=== PATIENT | male | born 1960 | race Caucasian/White ===

== ENCOUNTER 2018-11-15 06:04 | Day surgery (SDC) | payer OTHER ==
[2018-11-09 14:49] VITALS: BMI 28.1
[2018-11-15] MEDS ORDERED: MIDAZOLAM HCL 2 MG/2 ML SINGLE DOSE VIAL ONE (07:47)
[2018-11-15] MEDS ORDERED: PROPOFOL 20 ML ONE (07:47)
[2018-11-15] MEDS ORDERED: ROCURONIUM BROMIDE 50 MG/5 ML VIAL ONE (07:47)
[2018-11-15] MEDS ORDERED: SUCCINYLCHOLINE CHLORIDE 200 MG/10 ML VIAL ONE (07:47)
[2018-11-15] MEDS ORDERED: ATROPINE SULFATE 1 MG/10 ML DISP.SYRIN ONE (08:12)
[2018-11-15] MEDS ORDERED: ONDANSETRON 4 MG/2 ML VIAL ONE (08:13)
[2018-11-15] MEDS ORDERED: ceFAZolin SODIUM 1 GM VIAL ONE (08:13)
[2018-11-15] MEDS ORDERED: DEXAMETHASONE SOD PHOSPHATE 4 MG/1 ML VIAL ONE (08:13)
[2018-11-15] MEDS ORDERED: NEOSTIGMINE METHYLSULFATE 0.5 MG/ML - 10 ML MDV ONE (08:43)
[2018-11-15] MEDS ORDERED: GLYCOPYRROLATE 0.2 MG/1 ML VIAL ONE (08:44)
--- NOTE | 2018-11-15 08:54 | HP ---
[facility] - Chief Complaint Chief Complaint: Umbilical hernia History Source: Patient Limitations to Obtaining History: No Limitations - Past Medical History Allergies/Adverse Reactions: Allergies Allergy/AdvReac Type Severity Reaction Status Date / Time No Known Drug Allergies Allergy Verified 10/09/14 10:37 HAY FEVER Allergy Uncoded 10/09/14 10:37 Cardiovascular: Yes: Hyperlipdemia Gastrointestinal: Yes: Hemorrhoids, Hiatal Hernia Additional Medical History: Left olecranon bursitis - Current Medications Current Medications: Home Medications Medication Instructions Recorded Cholecalciferol (Vitamin D3) 2,000 unit PO DAILY 06/26/14 [Vitamin D] Multivitamin [One Daily 1 each PO DAILY tablet 09/27/14 Multivitamin] Satellite Physical Exam - Physical Examination Vital Signs: Vital Signs Period Temp Pulse Resp BP Sys/Tovar Pulse Ox Last 24 Hr 97.6 F 45 18 131/72 95 General Appearance: Well Nourished Lung: Clear to auscultation Heart: Regular rate & rhythm Abdomen: Soft, Other (+ umbilical hernia) Neurological: Alert, Oriented Satellite Impression/Plan - Impression/Plan Impression: + Umbilical hernia Operative Procedure: Laparoscopic possible open umbilical hernia repair with possible mesh Date to be Performed: 11/15/18
--- NOTE | 2018-11-15 08:57 | OP ---
Operative Note - Note: Operative Date: 11/15/18 Pre-Operative Diagnosis: Umbilical hernia Operation: Laaproscopic umbilical hernia repair Post-Operative Diagnosis: Same as Pre-op Surgeon: Eliazar Gutierrez Anesthesia: General Specimens Removed: None Estimated Blood Loss (mls): 5 Operative Report Dictated: Yes
[2018-11-15] MEDS ORDERED: ONDANSETRON 4 MG/2 ML VIAL IVPUSH PRN (09:02)
[2018-11-15] MEDS ORDERED: oxyCODONE HCL 5 MG TABLET PO PRN (09:02)
[2018-11-15] MEDS ORDERED: LACTATED RINGERS SOLUTION 1,000 ML IV SCH (09:15)
[2018-11-15] MEDS ORDERED: oxyCODONE HCL 5 MG TABLET ONE (09:53)
[2018-11-15 10:06] VITALS: TEMP 97.3
--- NOTE | 2018-11-15 10:26 | OP ---
DATE OF OPERATION: 11/15/2018 SURGEON: Elke Gutierrez MD CLAIM SERVICE REPRESENTATIVE: Aminata Young MD PREOPERATIVE DIAGNOSIS: Umbilical hernia. POSTOPERATIVE DIAGNOSIS: Umbilical hernia. PROCEDURE: Laparoscopic umbilical hernia repair. SPECIMEN: None. BLOOD LOSS: 5 mL. DRAINS: None. ANESTHESIA: GET. REASON FOR PROCEDURE: This is a 58-year-old gentleman who presents to the office for evaluation of possible umbilical hernia. On exam and ultrasound findings, he was found to have an umbilical hernia approximately 2 cm x 2 cm in size. Because of this, he was consented for laparoscopic possible open umbilical hernia repair with possible mess. The risks and benefits of the procedure were explained, these included bleeding, infection, recurrence of hernia, injury to surrounding structure including intraabdominal contents including bowel, stomach, colon, spleen, liver, other intraabdominal organs, nerve injury, vessel injury, MO, DVT, and PE as some of the complications. He understood and signed for consent. DESCRIPTION OF PROCEDURE: Patient was placed supine on the operative table. He underwent general endotracheal intubation. The abdomen was prepped and draped in sterile fashion. Timeout was performed. A 5-mm incision was made in the left subcostal region. A 5-mm Optiview trocar was placed under direct visualization with the laparoscope. Pneumoperitoneum was insufflated. The abdomen was inspected, and the small 2 cm x 2 cm umbilical hernia was noted. No bowel content was noted. An incision was made at the center of the umbilicus which is at the center of the hernia. Using the Betito-Jennifer device and 2-0 Vicryl suture, the fascia was closed in [id number] fashion. The hernia was noted to be completely secured with the sutures. No further hernias were noted. Pneumoperitoneum was desufflated, and trocar was removed. Biosyn 4-0 was used to close the 2 skin incisions. Sterile dressings were applied. The patient tolerated the procedure well and transferred to the recovery room in stable condition. ELKE GUTIERREZ M.D. MICHELE/[id number]
[2018-11-15 12:11] VITALS: BP 115/67; PULSE 47
== END 2018-11-15 11:45 | disposition home or self-care (01) ==
LOC: FASU 06:04
PROVIDERS: ATTEND Surgery
PROC: 0WQF4ZZ Repair Abdominal Wall, Percutaneous Endoscopic Approach (ICD-10-PCS; principal; 2018-11-15 08:30)
DX: K42.9 Umbilical hernia without obstruction or gangrene (principal)
CPT/HCPCS: 94760

== ENCOUNTER 2019-09-26 09:23 | Day surgery (SDC) | payer OTHER ==
[2019-09-22 12:32] VITALS: BMI 28.0
[2019-09-26 09:39] VITALS: TEMP 97.6
[2019-09-26 10:43] VITALS: BP 119/79; PULSE 57
--- NOTE | 2019-09-29 11:16 | PATH ---
Surgical Pathology Report Patient Name: BILL AVILA [facility]. Rec. #: [id number] /Age/Gender: 1960 (Age: 59) / M Account: [id number] Location: [facility] Taken: 09/26/2019 Received: 09/26/2019 Reported: 09/29/2019 Physicians: Peewee Calderon M.D. Specimen(s) Received POLYP RECTUM Clinical History Screening Postoperative diagnosis: Large external hemorrhoids, rectal polyp Final Diagnosis RECTUM, POLYP, BIOPSY: SESSILE SERRATED POLYP. Electronically Signed More Norman M.D. Gross Description Received in formalin, labeled "biopsy polyp rectum" is a cristina, irregular portion of soft tissue measuring 0.2 cm. in greatest dimension. The specimen is submitted in toto in one cassette. 09/27/201909/27/2019
== END 2019-09-26 10:45 | disposition home or self-care (01) ==
LOC: FASU-ENDO 09:23
PROVIDERS: ATTEND Internal Medicine Gastroenterology
PROC: 0DBP8ZX Excision of Rectum, Via Natural or Artificial Opening Endoscopic, Diagnostic (ICD-10-PCS; principal; 2019-09-26 09:53)
DX: Z86.010 Personal history of colon polyps (principal); K57.30 Diverticulosis of large intestine without perforation or abscess without bleeding; K62.1 Rectal polyp; K64.4 Residual hemorrhoidal skin tags

== ENCOUNTER 2021-03-30 12:26 | Emergency (ER) | payer OTHER ==
[2021-03-30] MEDS ORDERED: FAMOTIDINE 20 MG/50 ML IVPB 50 ML IVPB ONE (12:33)
[2021-03-30] MEDS ORDERED: KETOROLAC TROMETHAMINE 30 MG/1 ML VIAL IVPUSH ONE (12:33)
[2021-03-30] MEDS ORDERED: ONDANSETRON 4 MG/2 ML VIAL IVPUSH ONE (12:33)
[2021-03-30] MEDS ORDERED: SODIUM CHLORIDE 0.9% 1000 ML INFUS.BAG IV ONE (12:33)
[2021-03-30 12:37] VITALS: TEMP 98.3; BMI 21.9
[2021-03-30 12:52] LABS: BASO % 3.9 % (0-2.0); EOS % 2.4 % (0-4.5); HEMATOCRIT 48.8 % (35.4-49); HEMOGLOBIN 16.8 GM/dl (11.7-16.9); LYMPH % 21.9 % (8-40); MCH 32.7 pg (25.7-33.7); MCHC 34.4 g/dl (32.0-35.9); MEAN PLT VOLUME 9.2 fl (7.5-11.1); MONO % 6.6 % (3.8-10.2); NEUT % 65.2 % (42.8-82.8); PLATELET COUNT 180 10^3/uL (134-434); RBC 5.14 M/mm3 (4.00-5.60); RDW 12.1 % (11.9-15.9); WHITE BLOOD COUNT 9.3 K/mm3 (4.0-10.8)
[2021-03-30 12:59] VITALS: BP 153/86; PULSE 88
[2021-03-30] MEDS ORDERED: FAMOTIDINE 20 MG/50 ML IVPB 20 MG/50 ML MG IVPB ONE ×2 (13:03→13:45)
[2021-03-30] MEDS ORDERED: KETOROLAC TROMETHAMINE 30 MG/1 ML VIAL ONE (13:03)
[2021-03-30] MEDS ORDERED: ONDANSETRON 4 MG/2 ML VIAL ONE (13:03)
[2021-03-30 13:30] LABS: ALBUMIN 3.8 g/dl (3.4-5.0); BILIRUBIN,TOTAL 1.5 mg/dl (0.2-1); CALCIUM 8.4 mg/dl (8.5-10); CREATININE 1.1 mg/dl (0.55-1.3); TOT PROT 6.4 g/dl (6.4-8.2)
[2021-03-30] MEDS ORDERED: morphine CARPU-JECT 4 MG/1 ML DISP.SYRIN IVPUSH ONE (13:31)
[2021-03-30] MEDS ORDERED: morphine SULFATE 4 MG/ML VIAL ONE (13:32)
[2021-03-30] MEDS ORDERED: HYDROmorphone HCL CARPU-JECT 1 MG/1 ML DISP.SYRIN IVPUSH ONE (13:58)
[2021-03-30] MEDS ORDERED: HYDROmorphone HCL/PF 1 MG/ML VIAL ONE (13:59)
[2021-03-30] MEDS ORDERED: TAMSULOSIN HCL 0.4 MG CAP PO ONE (14:16)
[2021-03-30 15:59] LABS: EPITHELIAL CELLS RARE /hpf
== END 2021-03-30 15:58 | disposition home or self-care (01) ==
LOC: FER 12:26
PROC: 3E033GC Introduction of Other Therapeutic Substance into Peripheral Vein, Percutaneous Approach (ICD-10-PCS; principal; 2021-03-30)
PROC: 3E033NZ Introduction of Analgesics, Hypnotics, Sedatives into Peripheral Vein, Percutaneous Approach (ICD-10-PCS; 2021-03-30)
PROC: 3E0333Z Introduction of Anti-inflammatory into Peripheral Vein, Percutaneous Approach (ICD-10-PCS; 2021-03-30)
PROC: 3E033NZ Introduction of Analgesics, Hypnotics, Sedatives into Peripheral Vein, Percutaneous Approach (ICD-10-PCS; 2021-03-30)
PROC: 3E033GC Introduction of Other Therapeutic Substance into Peripheral Vein, Percutaneous Approach (ICD-10-PCS; 2021-03-30)
DX: N20.0 Calculus of kidney (principal)
CPT/HCPCS: 36415; 74176-TC; 80053; 81003; 81015; 85025; 87077; 87086; 99285-25

== ENCOUNTER 2021-07-13 21:25 | Emergency (ER) | payer OTHER ==
[2021-07-13] MEDS ORDERED: morphine SULFATE IMMEDIATE RELEASE 30 MG TAB PO ONE (21:31)
[2021-07-13 21:34] VITALS: BP 158/92; PULSE 87; TEMP 98; BMI 21.8
[2021-07-13] MEDS ORDERED: morphine SULFATE IMMEDIATE RELEASE 30 MG TAB ONE (21:36)
[2021-07-13] MEDS ORDERED: LACTATED RINGERS SOLUTION 1000 ML INFUS.BAG IV ONE (21:51)
[2021-07-13 22:01] LABS: EPITHELIAL CELLS RARE /hpf
[2021-07-13 22:20] LABS: BASO % 0.9 % (0-2.0); EOS % 0.5 % (0-4.5); HEMATOCRIT 43.1 % (35.4-49); HEMOGLOBIN 15.1 GM/dl (11.7-16.9); LYMPH % 8.2 % (8-40); MCH 33.2 pg (25.7-33.7); MEAN CELL VOLUME 94.9 fl (80-96); MEAN PLT VOLUME 8.2 fl (7.5-11.1); MONO % 5.8 % (3.8-10.2); NEUT % 84.6 % (42.8-82.8); PLATELET COUNT 178 10^3/uL (134-434); RBC 4.54 M/mm3 (4.00-5.60); RDW 11.9 % (11.9-15.9); WHITE BLOOD COUNT 11.4 K/mm3 (4.0-10.8)
[2021-07-13] MEDS ORDERED: METOCLOPRAMIDE HCL INJECTION 10 MG/2 ML VIAL IVPUSH ONE (22:22)
[2021-07-13] MEDS ORDERED: KETOROLAC TROMETHAMINE 30 MG/1 ML VIAL ONE (22:23)
[2021-07-13 22:30] LABS: ALBUMIN 3.7 g/dl (3.4-5.0); BILIRUBIN,TOTAL 1.3 mg/dl (0.2-1); CALCIUM 8.9 mg/dl (8.5-10); CREATININE 1.3 mg/dl (0.55-1.3); TOT PROT 6.2 g/dl (6.4-8.2)
[2021-07-13] MEDS ORDERED: KETOROLAC TROMETHAMINE 30 MG/1 ML VIAL IVPUSH ONE (22:38)
[2021-07-13] MEDS ORDERED: TAMSULOSIN HCL 0.4 MG CAP PO ONE (22:38)
[2021-07-13] MEDS ORDERED: TAMSULOSIN HCL 0.4 MG CAP ONE (22:42)
[2021-07-14 00:05] LABS: EPITHELIAL CELLS RARE /hpf
== END 2021-07-14 00:12 | disposition home or self-care (01) ==
LOC: FER 21:25
PROC: 3E033GC Introduction of Other Therapeutic Substance into Peripheral Vein, Percutaneous Approach (ICD-10-PCS; principal; 2021-07-13)
DX: N23 Unspecified renal colic (principal)
CPT/HCPCS: 36415; 76775-TC; 80053; 81003; 81015; 85025; 87086; 99284-25

== ENCOUNTER 2021-07-14 23:16 | Inpatient (IN) | payer OTHER ==
[2021-07-14 23:44] LABS: BASO % 0.6 % (0-2.0); EOS % 0.4 % (0-4.5); HEMATOCRIT 46.7 % (35.4-49); HEMOGLOBIN 16.2 GM/dl (11.7-16.9); LYMPH % 6.4 % (8-40); MCH 32.8 pg (25.7-33.7); MCHC 34.7 g/dl (32.0-35.9); MEAN CELL VOLUME 94.5 fl (80-96); MEAN PLT VOLUME 8.6 fl (7.5-11.1); MONO % 4.6 % (3.8-10.2); PLATELET COUNT 179 10^3/uL (134-434); RBC 4.94 M/mm3 (4.00-5.60); RDW 12.1 % (11.9-15.9); WHITE BLOOD COUNT 14.2 K/mm3 (4.0-10.8)
[2021-07-14 23:52] LABS: BILIRUBIN,TOTAL 1.7 mg/dl (0.2-1); CALCIUM 8.6 mg/dl (8.5-10); CREATININE 1.6 mg/dl (0.55-1.3); TOT PROT 6.7 g/dl (6.4-8.2)
[2021-07-14] MEDS ORDERED: CEFTRIAXONE 1 GM in DEXTROSE 5%-WATER - 50 ML IVPB ONE (23:59)
[2021-07-15 00:01] LABS: EPITHELIAL CELLS RARE /hpf
[2021-07-15] MEDS: SODIUM CHLORIDE 0.9% 500 ML INFUS.BAG IV ONE ×2 (00:13→02:01)
[2021-07-15] MEDS ORDERED: cefTRIAXone SODIUM 1 GM VIAL ONE (00:15)
[2021-07-15] MEDS ORDERED: morphine SULFATE 4 MG/ML VIAL ONE (00:15)
[2021-07-15] MEDS ORDERED: TAMSULOSIN HCL 0.4 MG CAP ONE (00:15)
[2021-07-15] MEDS: morphine CARPU-JECT 2 MG/1 ML DISP.SYRIN IVPUSH ONE ×2 (00:21→12:37)
[2021-07-15] MEDS: TAMSULOSIN HCL 0.4 MG CAP PO ONE ×2 (00:21→12:37)
[2021-07-15] MEDS ORDERED: ONDANSETRON 4 MG/2 ML VIAL ONE (00:30)
[2021-07-15] MEDS ORDERED: ONDANSETRON 4 MG/2 ML VIAL IVPB ONE (00:38)
[2021-07-15] MEDS ORDERED: KETOROLAC TROMETHAMINE 30 MG/1 ML VIAL ONE (01:13)
[2021-07-15] MEDS ORDERED: KETOROLAC TROMETHAMINE 30 MG/1 ML VIAL IVPUSH ONE (01:13)
[2021-07-15] MEDS ORDERED: SODIUM CHLORIDE 0.9% 500 ML INFUS.BAG IV ONE (01:25)
[2021-07-15] MEDS ORDERED: ACETAMINOPHEN 325 MG TABLET (FP) PO PRN (01:52)
[2021-07-15] MEDS ORDERED: POLYETHYLENE GLYCOL (HEALTHYLAX) 3350 17 GM PACKET PO PRN (03:18)
[2021-07-15 03:41] VITALS: BMI 29.0
[2021-07-15] MEDS: DEXTROSE 5%-NORMAL SALINE 1,000 ML IV SCH ×2 (03:57→17:11)
[2021-07-15] MEDS ORDERED: HEPARIN NA (PORCINE) 5,000 UNITS/ML 1ML VIAL SQ SCH (06:00)
[2021-07-15] MEDS ORDERED: KETOROLAC TROMETHAMINE 15 MG/ML VIAL IVPUSH PRN (07:30)
[2021-07-15] MEDS: TAMSULOSIN HCL 0.4 MG CAP PO SCH (10:06)
[2021-07-15] MEDS: PANTOPRAZOLE 40 MG TABLET PO SCH (10:07)
[2021-07-15] MEDS: ONDANSETRON 4 MG/2 ML VIAL IVPUSH PRN (23:00)
[2021-07-16] MEDS ORDERED: ACETAMINOPHEN 1000 MG/100 ML VIAL IVPB ONE (01:01)
[2021-07-16] MEDS: DEXTROSE 5%-NORMAL SALINE 1,000 ML IV SCH (04:20)
[2021-07-16] MEDS: ONDANSETRON 4 MG/2 ML VIAL IVPUSH PRN (06:28)
[2021-07-16] MEDS ORDERED: oxyCODONE HCL 5 MG TABLET PO PRN (08:54)
[2021-07-16 09:06] LABS: BASO % 0.3 % (0-2.0); EOS % 0.7 % (0-4.5); HEMOGLOBIN 14.6 GM/dL (11.7-16.9); LYMPH % 7.4 % (8-40); MCH 32.9 pg (25.7-33.7); MCHC 35.7 g/dl (32.0-35.9); MEAN CELL VOLUME 92.1 fl (80-96); MEAN PLT VOLUME 8.7 fl (7.5-11.1); MONO % 7.2 % (3.8-10.2); NEUT % 84.4 % (42.8-82.8); PLATELET COUNT 153 10^3/uL (134-434); RBC 4.45 M/mm3 (4.00-5.60); RDW 12.9 % (11.9-15.9); WHITE BLOOD COUNT 11.7 K/mm3 (4.0-10.0)
[2021-07-16 09:11] LABS: INR 1.19 (0.83-1.09); PROTHROMBIN TIME (PATIENT) 13.4 SEC (9.7-13.0)
[2021-07-16 09:13] LABS: ACTIVATED PTT 23.2 SECONDS (25.2-36.5)
[2021-07-16] MEDS ORDERED: DEXTROSE 5%-WATER - 50 ML IVPB ONE (09:24)
[2021-07-16] MEDS ORDERED: cefTRIAXone SODIUM 1 GM VIAL ONE (09:24)
[2021-07-16 09:30] LABS: CALCIUM 8.5 mg/dL (8.5-10.1)
[2021-07-16 09:31] LABS: ALBUMIN 3.2 g/dl (3.4-5.0); BLOOD UREA NITROGEN 15.3 mg/dL (7-18)
[2021-07-16 09:34] LABS: CREATININE 1.6 mg/dL (0.55-1.3)
[2021-07-16 09:35] LABS: BILIRUBIN,TOTAL 1.5 mg/dL (0.2-1)
[2021-07-16 09:36] LABS: TOT PROT 6.4 g/dl (6.4-8.2)
[2021-07-16] MEDS ORDERED: ACETAMINOPHEN 1000 MG/100 ML VIAL IVPB PRN ×2 (09:45→16:21)
[2021-07-16] MEDS ORDERED: CEFTRIAXONE 1 GM in DEXTROSE 5%-WATER - 50 ML IVPB SCH (10:00)
[2021-07-16] MEDS ORDERED: LACTATED RINGERS SOLUTION 1,000 ML/1,000 ML INFUS.BAG IV SCH (11:00)
[2021-07-16] MEDS: PANTOPRAZOLE 40 MG TABLET PO SCH (11:36)
[2021-07-16] MEDS: TAMSULOSIN HCL 0.4 MG CAP PO SCH (11:36)
[2021-07-16] MEDS ORDERED: ROCURONIUM BROMIDE 50 MG/5 ML SYRINGE ONE (15:11)
[2021-07-16] MEDS ORDERED: LIDOCAINE HCL/PF 2% SDV 5ML VIAL ONE (15:11)
[2021-07-16] MEDS ORDERED: PROPOFOL 20 ML ONE (15:11)
[2021-07-16] MEDS ORDERED: SUCCINYLCHOLINE CHLORIDE 200 MG/10 ML SYRINGE ONE (15:13)
[2021-07-16] MEDS ORDERED: MIDAZOLAM HCL 2 MG/2 ML SINGLE DOSE VIAL ONE (15:24)
[2021-07-16] MEDS ORDERED: ONDANSETRON 4 MG/2 ML VIAL IVPUSH PRN (16:21)
[2021-07-16] MEDS ORDERED: ACETAMINOPHEN 325 MG TABLET (FP) PO PRN (16:21)
[2021-07-16 17:20] VITALS: BP 132/76; PULSE 66; TEMP 97.6
[2021-07-17] MEDS ORDERED: TAMSULOSIN HCL 0.4 MG CAP PO SCH (08:30)
[2021-07-17] MEDS ORDERED: PANTOPRAZOLE 40 MG TABLET PO SCH (10:00)
== END 2021-07-16 19:16 | disposition home or self-care (01) | DRG 661 ==
LOC: FER 23:16 → FM/S 07-15 03:17 → J8W 07-15 12:20
PROVIDERS: ATTEND Internal Medicine
PROC: BT1FZZZ Fluoroscopy of Left Kidney, Ureter and Bladder (ICD-10-PCS; 2021-07-16)
PROC: 0T778DZ Dilation of Left Ureter with Intraluminal Device, Via Natural or Artificial Opening Endoscopic (ICD-10-PCS; principal; 2021-07-16 13:00)
DX: N13.2 Hydronephrosis with renal and ureteral calculous obstruction (principal); D72.829 Elevated white blood cell count, unspecified; E78.5 Hyperlipidemia, unspecified; K44.9 Diaphragmatic hernia without obstruction or gangrene; K64.9 Unspecified hemorrhoids; R11.2 Nausea with vomiting, unspecified; N17.9 Acute kidney failure, unspecified; I44.0 Atrioventricular block, first degree; R39.9 Unspecified symptoms and signs involving the genitourinary system
CPT/HCPCS: 36415; 71045-TC-FY; 72192-TC; 74176-TC; 76000-TC-FY; 80053; 81003; 81015; 82550; 84484; 85025; 85610; 85730; 87086; 93005; 93010; 94760; 99285-25; C9803; J0131; J1644; U0003; U0005

== ENCOUNTER 2021-08-12 04:49 | Day surgery (SDC) | payer OTHER ==
[2021-08-06 15:34] VITALS: BMI 29.5
[2021-08-12] MEDS ORDERED: MIDAZOLAM HCL 2 MG/2 ML SINGLE DOSE VIAL ONE ×2 (14:39→15:19)
[2021-08-12] MEDS ORDERED: ceFAZolin SODIUM 1 GM VIAL IVPB ONE (15:10)
[2021-08-12] MEDS ORDERED: LIDOCAINE HCL 2% JELLY 10 ML CARTRIDGE ONE (16:40)
[2021-08-12] MEDS ORDERED: ONDANSETRON 4 MG/2 ML VIAL IVPUSH PRN (16:50)
[2021-08-12] MEDS ORDERED: oxyCODONE HCL 5 MG TABLET PO PRN (16:50)
[2021-08-12] MEDS ORDERED: ACETAMINOPHEN 1000 MG/100 ML VIAL IVPB ONE (16:51)
[2021-08-12] MEDS ORDERED: ACETAMINOPHEN INJECTION 100 ML IVPB ONE (17:19)
[2021-08-12 21:28] VITALS: BP 128/75; PULSE 54; TEMP 97.4
[2021-08-19 12:44] LABS: SIZE 3X3; WEIGHT 173 MG
[2021-08-19 12:45] LABS: CA OXALATE MONOHYDR. 90%
== END 2021-08-12 21:28 | disposition home or self-care (01) ==
LOC: JASU-SURG 04:49
PROVIDERS: ATTEND Urology
PROC: 0TC78ZZ Extirpation of Matter from Left Ureter, Via Natural or Artificial Opening Endoscopic (ICD-10-PCS; principal; 2021-08-12 14:00)
PROC: 0T778DZ Dilation of Left Ureter with Intraluminal Device, Via Natural or Artificial Opening Endoscopic (ICD-10-PCS; 2021-08-12 14:00)
PROC: BT1FYZZ Fluoroscopy of Left Kidney, Ureter and Bladder using Other Contrast (ICD-10-PCS; 2021-08-12 14:00)
DX: N20.1 Calculus of ureter (principal)
CPT/HCPCS: 36415; 76000-TC-FY; 82360; 88300-TC; 94760; J0131

== ENCOUNTER 2021-08-20 16:00 | Inpatient (IN) | payer OTHER ==
[2021-08-20] MEDS ORDERED: SODIUM CHLORIDE IV ONE (16:14)
[2021-08-20 16:15] VITALS: BMI 29.0
[2021-08-20] MEDS ORDERED: PIPERACILLIN/TAZOB 4.5 GM 4.5 GM in DEXTROSE 5%-WATER 100 ML IVPB ONE (16:16)
[2021-08-20] MEDS ORDERED: VANCOMYCIN 1 GM in D5W (PRE-DOCKED) 1,000 MG/250 ML IVPB ONE (16:16)
[2021-08-20] MEDS ORDERED: PIPERACILLIN/TAZOBACTAM 4.5 GM VIAL IVPB ONE (16:43)
[2021-08-20] MEDS ORDERED: VANCOMYCIN 1,000 MG VIAL (RESTRICTED TO ID ONLY) ONE (16:43)
[2021-08-20] MEDS ORDERED: ACETAMINOPHEN 1000 MG/100 ML VIAL IVPB ONE (16:50)
[2021-08-20] MEDS ORDERED: ACETAMINOPHEN INJECTION 100 ML IVPB ONE (16:53)
[2021-08-20 17:11] LABS: ALBUMIN 4.1 g/dl (3.4-5.0); BILIRUBIN,TOTAL 1.7 mg/dl (0.2-1); CALCIUM 8.9 mg/dl (8.5-10); CREATININE 1.1 mg/dl (0.55-1.3); TOT PROT 7.1 g/dl (6.4-8.2)
[2021-08-20 17:14] LABS: EPITHELIAL CELLS RARE /hpf
[2021-08-20 17:15] LABS: ACTIVATED PTT 24.7 SECONDS (25.2-36.5)
[2021-08-20 17:19] LABS: INR 1.25 (0.82-1.09); PROTHROMBIN TIME (PATIENT) 13.9 SEC (10.2-13.0)
[2021-08-20 17:57] LABS: BASO % 0.3 % (0-2.0); HEMATOCRIT 44.8 % (35.4-49); HEMOGLOBIN 15.8 GM/dL (11.7-16.9); LYMPH % 2.6 % (8-40); MCH 32.9 pg (25.7-33.7); MCHC 35.2 g/dl (32.0-35.9); MEAN CELL VOLUME 93.5 fl (80-96); MEAN PLT VOLUME 8.8 fl (7.5-11.1); MONO % 7.1 % (3.8-10.2); PLATELET COUNT 150 10^3/uL (134-434); RBC 4.79 M/mm3 (4.00-5.60); RDW 12.6 % (11.9-15.9); WHITE BLOOD COUNT 15.5 K/mm3 (4.0-10.0)
[2021-08-20] MEDS ORDERED: ONDANSETRON 4 MG/2 ML VIAL IVPUSH ONE (19:06)
[2021-08-20] MEDS ORDERED: ONDANSETRON 4 MG/2 ML VIAL ONE (19:06)
[2021-08-20] MEDS ORDERED: KETOROLAC TROMETHAMINE 30 MG/1 ML VIAL IVPUSH ONE (20:53)
[2021-08-20] MEDS ORDERED: KETOROLAC TROMETHAMINE 15 MG/ML VIAL ONE (20:53)
[2021-08-21] MEDS ORDERED: SODIUM CHLORIDE 1,000 ML IV SCH ×2 (01:45→11:56)
[2021-08-21] MEDS ORDERED: ACETAMINOPHEN 325 MG TABLET (FP) PO PRN (01:54)
[2021-08-21] MEDS ORDERED: DEXTROSE 5%-WATER 100 ML IVPB ONE ×2 (02:53→09:12)
[2021-08-21] MEDS ORDERED: PIPERACILLIN/TAZOBACTAM 4.5 GM VIAL IVPB ONE ×2 (02:53→09:13)
[2021-08-21] MEDS: PIPERACILLIN/TAZOB 4.5 GM 4.5 GM in DEXTROSE 5%-WATER 100 ML IVPB SCH ×2 (03:08→09:35)
[2021-08-21] MEDS: ONDANSETRON 4 MG/2 ML VIAL IVPUSH PRN ×3 (04:25→16:55)
[2021-08-21 08:15] LABS: ALBUMIN 3.2 g/dl (3.4-5.0); CREATININE 1.4 mg/dl (0.55-1.3); TOT PROT 5.8 g/dl (6.4-8.2)
[2021-08-21] MEDS: TAMSULOSIN HCL 0.4 MG CAP PO SCH (09:35)
[2021-08-21 09:55] LABS: HEMATOCRIT 39.9 % (35.4-49); MCH 32.4 pg (25.7-33.7); MEAN CELL VOLUME 92.6 fl (80-96); MEAN PLT VOLUME 9.1 fl (7.5-11.1); PLATELET COUNT 147 10^3/uL (134-434); RBC 4.31 M/mm3 (4.00-5.60); RDW 12.6 % (11.9-15.9); WHITE BLOOD COUNT 18.7 K/mm3 (4.0-10.0)
[2021-08-21] MEDS ORDERED: LACTATED RINGERS SOLUTION 1000 ML INFUS.BAG IV STA (11:57)
[2021-08-21] MEDS ORDERED: LACTATED RINGERS SOLUTION 1,000 ML/1,000 ML INFUS.BAG IV SCH ×2 (12:00→18:45)
[2021-08-21 12:01] LABS: ANISOCYTOSIS 0; HELMET CELLS 0; HOWELL-JOLLY BODIES 0; MACROCYTOSIS 0; OVALOCYTE 0; PLATELET ESTIMATE DECREASED; ROULEAU 0; SICKELED CELLS 0; TARGET CELLS 0; TEAR DROP CELLS 0; TOXIC GRANULATION 0
[2021-08-21] MEDS ORDERED: METOCLOPRAMIDE HCL INJECTION 10 MG/2 ML VIAL IVPUSH ONE (13:15)
[2021-08-21] MEDS: ENOXAPARIN NA (PORCINE) 40 MG/0.4 ML DISP.SYRIN SQ SCH (13:30)
[2021-08-21] MEDS ORDERED: MELATONIN 5 MG TABLETS PO ONE ×2 (13:36→22:00)
[2021-08-21] MEDS ORDERED: PIPERACILLIN/TAZOBACTAM 3.375 GM VIAL IVPB ONE ×2 (16:50→22:27)
[2021-08-21] MEDS ORDERED: DEXTROSE 5%-WATER - 50 ML IVPB ONE ×2 (16:50→22:27)
[2021-08-21] MEDS ORDERED: PIPERACILLIN/TAZOB 3.375 GM 3.375 GM in DEXTROSE 5%-WATER - 50 ML IVPB SCH (18:00)
[2021-08-21] MEDS: PIPERACILLIN/TAZOB 3.375 GM 3.375 GM in DEXTROSE 5%-WATER - 50 ML IVPB SCH (22:50)
[2021-08-22] MEDS: ONDANSETRON 4 MG/2 ML VIAL IVPUSH PRN ×2 (00:02→21:24)
[2021-08-22] MEDS: MELATONIN 5 MG TABLETS PO PRN ×2 (01:23→23:40)
[2021-08-22] MEDS ORDERED: PIPERACILLIN/TAZOB 4.5 GM 4.5 GM in DEXTROSE 5%-WATER 100 ML IVPB SCH (03:00)
[2021-08-22] MEDS ORDERED: PIPERACILLIN/TAZOBACTAM 3.375 GM VIAL IVPB ONE ×4 (05:13→20:53)
[2021-08-22] MEDS ORDERED: DEXTROSE 5%-WATER - 50 ML IVPB ONE ×4 (05:14→20:53)
[2021-08-22] MEDS: PIPERACILLIN/TAZOB 3.375 GM 3.375 GM in DEXTROSE 5%-WATER - 50 ML IVPB SCH ×4 (05:26→22:17)
[2021-08-22 08:32] LABS: BILIRUBIN,TOTAL 1.6 mg/dl (0.2-1); CALCIUM 8.1 mg/dl (8.5-10); CREATININE 1.5 mg/dl (0.55-1.3); MAGNESIUM 1.8 mg/dL (1.8-2.4); TOT PROT 5.6 g/dl (6.4-8.2)
[2021-08-22] MEDS: ENOXAPARIN NA (PORCINE) 40 MG/0.4 ML DISP.SYRIN SQ SCH (09:40)
[2021-08-22] MEDS: TAMSULOSIN HCL 0.4 MG CAP PO SCH (09:40)
[2021-08-22] MEDS: SODIUM CHLORIDE 1,000 ML IV SCH (09:41)
[2021-08-22 09:57] LABS: BASO % 0.3 % (0-2.0); HEMATOCRIT 39.7 % (35.4-49); LYMPH % 3.3 % (8-40); MCH 32.5 pg (25.7-33.7); MCHC 35.3 g/dl (32.0-35.9); MEAN CELL VOLUME 92.1 fl (80-96); MONO % 6.4 % (3.8-10.2); PLATELET COUNT 131 10^3/uL (134-434); RBC 4.31 M/mm3 (4.00-5.60); RDW 12.8 % (11.9-15.9); WHITE BLOOD COUNT 14.3 K/mm3 (4.0-10.0)
[2021-08-22] MEDS: ACETAMINOPHEN 325 MG TABLET (FP) PO SCH ×2 (15:53→23:40)
[2021-08-23] MEDS ORDERED: DEXTROSE 5%-WATER - 50 ML IVPB ONE ×3 (05:56→16:43)
[2021-08-23] MEDS ORDERED: PIPERACILLIN/TAZOBACTAM 3.375 GM VIAL IVPB ONE ×3 (05:56→16:43)
[2021-08-23] MEDS: PIPERACILLIN/TAZOB 3.375 GM 3.375 GM in DEXTROSE 5%-WATER - 50 ML IVPB SCH ×3 (06:13→16:46)
[2021-08-23] MEDS: ACETAMINOPHEN 325 MG TABLET (FP) PO SCH ×4 (06:14→22:43)
[2021-08-23] MEDS: TAMSULOSIN HCL 0.4 MG CAP PO SCH (10:03)
[2021-08-23] MEDS: ENOXAPARIN NA (PORCINE) 40 MG/0.4 ML DISP.SYRIN SQ SCH (10:04)
[2021-08-23] MEDS: SODIUM CHLORIDE 1,000 ML IV SCH (10:04)
[2021-08-23 11:56] LABS: ALBUMIN 2.8 g/dl (3.4-5.0); BILIRUBIN,TOTAL 1.6 mg/dl (0.2-1); CALCIUM 8.3 mg/dl (8.5-10); CREATININE 1.2 mg/dl (0.55-1.3); TOT PROT 5.5 g/dl (6.4-8.2)
[2021-08-23 12:48] LABS: BASO % 0.4 % (0-2.0); EOS % 0.5 % (0-4.5); HEMATOCRIT 38.6 % (35.4-49); HEMOGLOBIN 13.7 GM/dL (11.7-16.9); LYMPH % 7.7 % (8-40); MCH 32.7 pg (25.7-33.7); MCHC 35.4 g/dl (32.0-35.9); MEAN CELL VOLUME 92.3 fl (80-96); MEAN PLT VOLUME 8.9 fl (7.5-11.1); MONO % 9.1 % (3.8-10.2); NEUT % 82.3 % (42.8-82.8); PLATELET COUNT 137 10^3/uL (134-434); RBC 4.18 M/mm3 (4.00-5.60); RDW 12.9 % (11.9-15.9); WHITE BLOOD COUNT 9.6 K/mm3 (4.0-10.0)
[2021-08-23] MEDS: MELATONIN 5 MG TABLETS PO PRN (22:43)
[2021-08-24] MEDS ORDERED: AMPICILLIN NA/SULBACTAM NA 3 GM VIAL ONE ×3 (02:03→18:22)
[2021-08-24] MEDS ORDERED: SODIUM CHLORIDE 100 ML IVPB ONE ×3 (02:03→18:22)
[2021-08-24] MEDS: ACETAMINOPHEN 325 MG TABLET (FP) PO SCH ×4 (02:08→21:36)
[2021-08-24] MEDS: AMPICILLIN NA/SULBACTAM NA 3 GM in SODIUM CHLORIDE 100 ML IVPB SCH ×3 (02:08→18:30)
[2021-08-24 08:19] LABS: ALBUMIN 2.4 g/dl (3.4-5.0); BILIRUBIN,TOTAL 1.1 mg/dl (0.2-1); CALCIUM 7.8 mg/dl (8.5-10)
[2021-08-24] MEDS: TAMSULOSIN HCL 0.4 MG CAP PO SCH (10:14)
[2021-08-24] MEDS: ENOXAPARIN NA (PORCINE) 40 MG/0.4 ML DISP.SYRIN SQ SCH (10:14)
[2021-08-24 10:20] LABS: BASO % 0.5 % (0-2.0); EOS % 1.5 % (0-4.5); HEMATOCRIT 34.3 % (35.4-49); HEMOGLOBIN 12.2 GM/dL (11.7-16.9); LYMPH % 9.7 % (8-40); MCH 32.6 pg (25.7-33.7); MCHC 35.4 g/dl (32.0-35.9); MEAN CELL VOLUME 91.8 fl (80-96); MEAN PLT VOLUME 8.7 fl (7.5-11.1); MONO % 8.2 % (3.8-10.2); NEUT % 80.1 % (42.8-82.8); PLATELET COUNT 138 10^3/uL (134-434); RBC 3.74 M/mm3 (4.00-5.60); RDW 13.1 % (11.9-15.9); WHITE BLOOD COUNT 8.4 K/mm3 (4.0-10.0)
[2021-08-25] MEDS ORDERED: AMPICILLIN NA/SULBACTAM NA 3 GM VIAL ONE (01:11)
[2021-08-25] MEDS: AMPICILLIN NA/SULBACTAM NA 3 GM in SODIUM CHLORIDE 100 ML IVPB SCH ×3 (02:10→17:59)
[2021-08-25] MEDS: ACETAMINOPHEN 325 MG TABLET (FP) PO SCH ×4 (02:11→21:36)
[2021-08-25 09:14] LABS: ALBUMIN 2.4 g/dl (3.4-5.0); BILIRUBIN,TOTAL 0.7 mg/dl (0.2-1); CALCIUM 7.9 mg/dl (8.5-10); CREATININE 0.9 mg/dl (0.55-1.3); MAGNESIUM 1.9 mg/dL (1.8-2.4); TOT PROT 5.1 g/dl (6.4-8.2)
[2021-08-25 09:54] LABS: BASO % 0.3 % (0-2.0); EOS % 1.8 % (0-4.5); HEMATOCRIT 31.9 % (35.4-49); HEMOGLOBIN 11.3 GM/dL (11.7-16.9); LYMPH % 10.9 % (8-40); MCH 32.5 pg (25.7-33.7); MCHC 35.6 g/dl (32.0-35.9); MEAN CELL VOLUME 91.3 fl (80-96); MEAN PLT VOLUME 8.1 fl (7.5-11.1); MONO % 7.9 % (3.8-10.2); NEUT % 79.1 % (42.8-82.8); PLATELET COUNT 153 10^3/uL (134-434); RBC 3.49 M/mm3 (4.00-5.60); WHITE BLOOD COUNT 8.6 K/mm3 (4.0-10.0)
[2021-08-25] MEDS: TAMSULOSIN HCL 0.4 MG CAP PO SCH (10:30)
[2021-08-25] MEDS: ENOXAPARIN NA (PORCINE) 40 MG/0.4 ML DISP.SYRIN SQ SCH (10:30)
[2021-08-25] MEDS: MELATONIN 5 MG TABLETS PO PRN (21:36)
[2021-08-26] MEDS: ACETAMINOPHEN 325 MG TABLET (FP) PO SCH ×2 (02:27→09:11)
[2021-08-26] MEDS: AMPICILLIN NA/SULBACTAM NA 3 GM in SODIUM CHLORIDE 100 ML IVPB SCH ×2 (02:27→09:13)
[2021-08-26 08:34] LABS: ALBUMIN 2.5 g/dl (3.4-5.0); BILIRUBIN,TOTAL 0.9 mg/dl (0.2-1); MAGNESIUM 1.9 mg/dL (1.8-2.4); PHOSPHOROUS 3.3 mg/dl (2.5-4.9); TOT PROT 5.2 g/dl (6.4-8.2)
[2021-08-26] MEDS ORDERED: AMPICILLIN NA/SULBACTAM NA 3 GM VIAL ONE (09:01)
[2021-08-26] MEDS ORDERED: SODIUM CHLORIDE 100 ML IVPB ONE (09:02)
[2021-08-26] MEDS: TAMSULOSIN HCL 0.4 MG CAP PO SCH (09:13)
[2021-08-26] MEDS: ENOXAPARIN NA (PORCINE) 40 MG/0.4 ML DISP.SYRIN SQ SCH (09:13)
[2021-08-26 10:00] LABS: BASO % 0.5 % (0-2.0); HEMATOCRIT 32.4 % (35.4-49); HEMOGLOBIN 11.6 GM/dL (11.7-16.9); LYMPH % 11.2 % (8-40); MCH 32.8 pg (25.7-33.7); MCHC 35.8 g/dl (32.0-35.9); MEAN CELL VOLUME 91.8 fl (80-96); MONO % 7.8 % (3.8-10.2); NEUT % 78.5 % (42.8-82.8); PLATELET COUNT 200 10^3/uL (134-434); RBC 3.53 M/mm3 (4.00-5.60); RDW 12.9 % (11.9-15.9); WHITE BLOOD COUNT 8.3 K/mm3 (4.0-10.0)
[2021-08-26] MEDS: POTASSIUM CHLORIDE TABS 20 MEQ TABLET.ER (FP) PO SCH ×2 (10:35→15:15)
[2021-08-26 14:37] VITALS: BP 126/70; PULSE 66; TEMP 98.1
== END 2021-08-26 15:33 | disposition home or self-care (01) | DRG 698 ==
LOC: FER 16:00 → FM/S 19:33
PROVIDERS: ATTEND Nurse Practitioner Acute Care
DX: T83.593A Infection and inflammatory reaction due to other urinary stents, initial encounter (principal); A41.81 Sepsis due to Enterococcus; N39.0 Urinary tract infection, site not specified; K21.9 Gastro-esophageal reflux disease without esophagitis; K44.9 Diaphragmatic hernia without obstruction or gangrene; E78.5 Hyperlipidemia, unspecified; K64.9 Unspecified hemorrhoids; N20.0 Calculus of kidney; Z98.890 Other specified postprocedural states; Y83.8 Other surgical procedures as the cause of abnormal reaction of the patient, or of later complication, without mention of misadventure at the time of the procedure
CPT/HCPCS: 36415; 71045-TC-FY; 80053; 81003; 81015; 83605; 83735; 84100; 84484; 85025; 85610; 85730; 87040; 87086; 87186; 87324; 87449; 93005; 97116-GP; 97162-GP; 99285-25; C9803; J0131; U0003; U0005

== ENCOUNTER 2022-04-07 09:53 | Day surgery (SDC) | payer OTHER ==
[2022-04-03 12:43] VITALS: BMI 28.2
[2022-04-07 11:47] VITALS: TEMP 97.1
[2022-04-07 12:01] VITALS: BP 105/66; PULSE 62; RESP 16
== END 2022-04-07 12:15 | disposition home or self-care (01) ==
LOC: FASU-ENDO 09:53
PROVIDERS: ATTEND Internal Medicine Gastroenterology
PROC: 0DB68ZX Excision of Stomach, Via Natural or Artificial Opening Endoscopic, Diagnostic (ICD-10-PCS; 2022-04-07)
PROC: 0DB98ZX Excision of Duodenum, Via Natural or Artificial Opening Endoscopic, Diagnostic (ICD-10-PCS; principal; 2022-04-07 11:16)
DX: K29.70 Gastritis, unspecified, without bleeding (principal); K31.9 Disease of stomach and duodenum, unspecified; R12 Heartburn
CPT/HCPCS: 88305-TC; 88342-TC

== ENCOUNTER 2023-10-31 12:20 | Inpatient (IN) | payer OTHER, MEDICARE ==
[2023-10-31] MEDS: SODIUM CHLORIDE 1,000 ML IV STA ×2 (12:50→16:00)
[2023-10-31] MEDS ORDERED: ONDANSETRON 4 MG/2 ML VIAL ONE (12:54)
[2023-10-31] MEDS ORDERED: KETOROLAC TROMETHAMINE 15 MG/ML VIAL ONE (12:54)
[2023-10-31] MEDS: KETOROLAC TROMETHAMINE 15 MG/ML VIAL IVPUSH ONE (13:00)
[2023-10-31] MEDS: ONDANSETRON 4 MG/2 ML VIAL IVPUSH ONE (13:04)
[2023-10-31 13:07] LABS: HEMATOCRIT 49.2 % (35.4-49); HEMOGLOBIN 17.8 G/dL (11.7-16.9); MCH 33.6 pg (25.7-33.7); MCHC 36.2 g/dl (32.0-35.9); MEAN CELL VOLUME 92.9 fl (80-96); MEAN PLT VOLUME 9.2 fl (7.5-11.1); RDW 13.3 % (11.9-15.9); WHITE BLOOD COUNT 13.2 10^3/uL (4.0-10.8)
[2023-10-31 13:22] LABS: ALBUMIN 4.7 g/dl (3.4-5.0); BILIRUBIN,TOTAL 1.9 mg/dl (0.2-1); CALCIUM 9.3 mg/dl (8.5-10.1); CREATININE 1.3 mg/dl (0.6-1.3); POTASSIUM 4.2 mmol/L (3.5-5.1); TOT PROT 7.3 g/dl (6.4-8.2)
[2023-10-31 13:30] LABS: INR 1.22 (0.83-1.09); PROTHROMBIN TIME (PATIENT) 14.1 SEC (9.7-13.0)
[2023-10-31 13:40] LABS: PLATELET ESTIMATE ADEQUATE
[2023-10-31] MEDS ORDERED: cefTRIAXone SODIUM 1 GM VIAL ONE (16:09)
[2023-10-31] MEDS: CEFTRIAXONE 1 GM in DEXTROSE 5%-WATER - 100 ML IVPB ONE (16:14)
[2023-10-31 17:28] VITALS: BMI 29.0
[2023-10-31] MEDS: LACTATED RINGERS SOLUTION 1,000 ML/1,000 ML INFUS.BAG IV SCH (17:49)
[2023-10-31] MEDS ORDERED: ACETAMINOPHEN 1000 MG/100 ML BAG IVPB PRN (21:26)
[2023-10-31] MEDS: TAMSULOSIN HCL 0.4 MG CAP PO ONE (21:54)
[2023-10-31] MEDS: PANTOPRAZOLE SODIUM 40 MG VIAL IVPUSH SCH (21:54)
[2023-10-31] MEDS: SODIUM CHLORIDE 1,000 ML IV SCH (21:55)
[2023-10-31] MEDS: KETOROLAC TROMETHAMINE 15 MG/ML VIAL IVPUSH PRN (23:57)
[2023-11-01] MEDS ORDERED: SODIUM CHLORIDE NASAL SPRAY 44 ML BOTTLE NS PRN (00:51)
[2023-11-01] MEDS: MELATONIN 5 MG TABLETS PO ONE (01:02)
[2023-11-01 09:47] LABS: ALBUMIN 3.7 g/dl (3.4-5.0); BILIRUBIN,TOTAL 1.4 mg/dl (0.2-1); CALCIUM 8.4 mg/dl (8.5-10.1); CREATININE 1.4 mg/dl (0.6-1.3); POTASSIUM 4.2 mmol/L (3.5-5.1); TOT PROT 5.6 g/dl (6.4-8.2)
[2023-11-01] MEDS: CHOLECALCIFEROL (VIT D3) 1,000 UNIT (25 MCG) TABLET PO SCH (09:50)
[2023-11-01] MEDS: ROSUVASTATIN CA 5 MG TABLET PO SCH (09:50)
[2023-11-01] MEDS: CEFTRIAXONE 1 GM in DEXTROSE 5%-WATER - 50 ML IVPB SCH (09:50)
[2023-11-01] MEDS: MULTIVITAMINS (DAILY MVI) TABLET (FP) PO SCH (09:50)
[2023-11-01 10:26] LABS: BASO % 0.4 % (0-2.0); EOS % 1.1 % (0-4.5); HEMOGLOBIN 14.4 GM/dL (11.7-16.9); MCH 32.3 pg (25.7-33.7); MCHC 35.1 g/dl (32.0-35.9); MEAN CELL VOLUME 91.8 fl (80-96); MEAN PLT VOLUME 8.9 fl (7.5-11.1); MONO % 8.4 % (3.8-10.2); NEUT % 75.1 % (42.8-82.8); PLATELET COUNT 135 10^3/uL (134-434); RBC 4.46 M/mm3 (4.00-5.60); RDW 13.6 % (11.9-15.9); WHITE BLOOD COUNT 7.5 K/mm3 (4.0-10.0)
[2023-11-01] MEDS: MELATONIN 5 MG TABLETS PO PRN (22:50)
[2023-11-01] MEDS: ONDANSETRON 4 MG/2 ML VIAL IVPUSH PRN (22:55)
[2023-11-02] MEDS: TAMSULOSIN HCL 0.4 MG CAP PO SCH (09:27)
[2023-11-02 09:45] LABS: CALCIUM 8.4 mg/dl (8.5-10.1); CREATININE 1.3 mg/dl (0.6-1.3); POTASSIUM 4.1 mmol/L (3.5-5.1)
[2023-11-02 10:08] LABS: BASO % 0.6 % (0-2.0); HEMATOCRIT 39.6 % (35.4-49); HEMOGLOBIN 13.7 GM/dL (11.7-16.9); MCHC 34.6 g/dl (32.0-35.9); MEAN CELL VOLUME 92.4 fl (80-96); MEAN PLT VOLUME 8.7 fl (7.5-11.1); MONO % 9.4 % (3.8-10.2); PLATELET COUNT 132 10^3/uL (134-434); RBC 4.29 M/mm3 (4.00-5.60); RDW 13.5 % (11.9-15.9); WHITE BLOOD COUNT 7.7 K/mm3 (4.0-10.0)
[2023-11-02] MEDS: DOCUSATE SODIUM 100 MG CAPSULE (FP) PO SCH (13:46)
[2023-11-02] MEDS: POLYETHYLENE GLYCOL (HEALTHYLAX) 3350 17 GM PACKET PO SCH (13:46)
[2023-11-02] MEDS ORDERED: ROSUVASTATIN CA 5 MG TABLET PO SCH (22:54)
[2023-11-02] MEDS: ROSUVASTATIN CA 5 MG TABLET PO SCH (23:25)
[2023-11-03 10:38] LABS: BASO % 0.5 % (0-2.0); CALCIUM 8.6 mg/dL (8.5-10.1); EOS % 3.3 % (0-4.5); HEMATOCRIT 40.8 % (35.4-49); HEMOGLOBIN 14.6 GM/dL (11.7-16.9); LYMPH % 12.7 % (8-40); MCH 32.8 pg (25.7-33.7); MCHC 35.9 g/dl (32.0-35.9); MEAN CELL VOLUME 91.3 fl (80-96); MEAN PLT VOLUME 8.6 fl (7.5-11.1); NEUT % 75.5 % (42.8-82.8); PLATELET COUNT 146 10^3/uL (134-434); POTASSIUM 4.1 mmol/L (3.5-5.1); RBC 4.47 M/mm3 (4.00-5.60); RDW 13.5 % (11.9-15.9)
[2023-11-03 10:39] LABS: ALBUMIN 3.5 g/dl (3.4-5.0); BLOOD UREA NITROGEN 14.6 mg/dL (7-18)
[2023-11-03 10:42] LABS: CREATININE 1.2 mg/dL (0.55-1.3)
[2023-11-03 10:44] LABS: BILIRUBIN,TOTAL 1.3 mg/dL (0.2-1); TOT PROT 6.4 g/dl (6.4-8.2)
[2023-11-03 11:23] LABS: BILIRUBIN,DIRECT 0.3 mg/dL (0.0-0.2)
[2023-11-03] MEDS ORDERED: MIDAZOLAM HCL 2 MG/2 ML SINGLE DOSE VIAL ONE (13:20)
[2023-11-03] MEDS: ceFAZolin SODIUM 1 GM VIAL IVPB ONE (13:23)
[2023-11-03] MEDS: LACTATED RINGERS SOLUTION 1,000 ML IV SCH (14:00)
[2023-11-03] MEDS: ACETAMINOPHEN INJECTION 100 ML IVPB ONE (14:50)
[2023-11-03] MEDS: ELECTROLYTE-148 SOLN 1,000 ML IV SCH (15:00)
[2023-11-03 15:35] VITALS: RESP 18
[2023-11-03 17:45] VITALS: BP 134/80; PULSE 81; TEMP 97.5
== END 2023-11-03 18:00 | disposition home or self-care (01) | DRG 694 ==
LOC: SUPCPDRO 12:20 → FER 12:20 → FM/S 16:12 → J6S 11-02 15:54
PROVIDERS: ADMIT Internal Medicine; ATTEND Internal Medicine
PROC: 0TF7XZZ Fragmentation in Left Ureter, External Approach (ICD-10-PCS; principal; 2023-11-03 12:45)
DX: N13.2 Hydronephrosis with renal and ureteral calculous obstruction (principal); J98.11 Atelectasis; E78.5 Hyperlipidemia, unspecified; E83.51 Hypocalcemia; N17.9 Acute kidney failure, unspecified; E80.6 Other disorders of bilirubin metabolism
CPT/HCPCS: 0241U-QW; 36415; 74176-TC; 80048; 80053; 81003; 81015; 82248; 82310; 83970; 85025; 85027; 85610; 85730; 87086; 93005; 94760; 99285-25; J0131